=== PATIENT | female | born 1975 ===

== ENCOUNTER 2017-08-02 08:57 | Emergency (ER) | payer SELFPAY ==
[2017-08-02 09:03] VITALS: O2SAT 100
--- NOTE | 2017-08-02 09:44 | C.PDOC ---
History Of Present Illness 42 y/o female presents to the ER for brief epistaxis at 3 am in the morning.Patient reports that the epistaxis becomes worse with lowering her head and coughing. Of note, the patient is not currently experiencing epistaxis in the ER. Time Seen by Provider: 08/02/17 09:37 Chief Complaint (Nursing): ENT Problem History Per: Patient Onset/Duration Of Symptoms: Hrs Past Medical History Reviewed: Historical Data, Nursing Documentation, Vital Signs Vital Signs: Last Vital Signs Temp 98.2 F 08/02/17 09:50 Pulse 100 H 08/02/17 09:50 Resp 16 08/02/17 09:50 BP 160/99 H 08/02/17 09:50 Pulse Ox 100 08/02/17 09:50 - Medical History PMH: No Chronic Diseases Surgical History: No Surg Hx Family History: States: No Known Family Hx - Social History Hx Alcohol Use: No Hx Substance Use: No - Immunization History Hx Tetanus Toxoid Vaccination: No Hx Influenza Vaccination: No Hx Pneumococcal Vaccination: No Review Of Systems Except As Marked, All Systems Reviewed And Found Negative. Constitutional: Negative for: Fever, Chills ENT: Negative for: Nose Discharge Neurological: Negative for: Weakness, Numbness Physical Exam - Physical Exam Appears: Non-toxic, No Acute Distress Skin: Normal Color, Warm Head: Atraumatic, Normacephalic Eye(s): bilateral: Normal Inspection, PERRL Ear(s): Bilateral: Normal Nose: No Epistaxis, Other (mild dry crust in the lateral right nare) Neck: Supple Chest: Symmetrical Cardiovascular: Rhythm Regular Respiratory: Normal Breath Sounds, No Accessory Muscle Use Extremity: Normal ROM Neurological/Psych: Oriented x3, Normal Speech, Normal Cognition, Normal Motor, Normal Sensation ED Course And Treatment O2 Sat by Pulse Oximetry: 100 (RA) Pulse Ox Interpretation: Normal Medical Decision Making Medical Decision Making: resolved R anterior epistaxis. Educated on proper nose pinching techniques. Disposition Doctor Will See Patient In The: Office Counseled Patient/Family Regarding: Studies Performed, Diagnosis - Disposition Referrals: [facility] [Outside] [facility] [Outside] Tino Jensen MD [Staff Provider] - Disposition: HOME/ ROUTINE Disposition Time: 09:43 Condition: GOOD Additional Instructions: si renae del parte anterior del nariz aprieta por 5 minutos sin parar. Sigue en la [facility] (gratis) blade necessario. Instructions: Nosebleed (ED) Forms: [facility] (Maltese) Print Language: SOUTH SUDANESE - Clinical Impression Clinical Impression: Epistaxis - Scribe Statement The provider has reviewed the documentation as recorded by the Scribe Janine Bansal Provider Attestation: All medical record entries made by the Scribe were at my direction and personally dictated by me. I have reviewed the chart and agree that the record accurately reflects my personal performance of the history, physical exam, medical decision making, and the department course for this patient. I have also personally directed, reviewed, and agree with the discharge instructions and disposition.
[2017-08-02 09:58] VITALS: BP 160/99; PULSE 100; RESP 16; TEMP 98.2
== END 2017-08-02 09:50 | disposition home or self-care (01) ==
LOC: C.ER 08:57
DX: R04.0 Epistaxis (principal)